=== PATIENT | female | born 1980 | race Caucasian/White ===

== ENCOUNTER → 2024-10-09 13:01 | Outpatient (CLI) | payer BC, SELFPAY ==
[2024-10-09 20:03] LABS: Add Manual Diff / Slide Review NO; Basophils Absolute Auto 0 /uL (0-100); Basophils Percent Auto 0.6 % (0-2); Eosinophils Absolute Auto 0 /uL (0-450); Eosinophils Percent Auto 0.7 % (2-4); Hematocrit 41.6 % (36-46); Hemoglobin 14.4 g/dL (12.0-16.0); Lymphocytes Absolute Auto 1400 /uL (1100-4500); Lymphocytes Percent Auto 33.5 % (25-40); Mean Corpuscular HGB Conc 34.6 % (30-36); Mean Corpuscular Hemoglobin 32.7 PG (26-34); Mean Corpuscular Volume 94.5 fL (80-100); Monocytes Absolute Auto 600 /uL (0-900); Monocytes Percent Auto 13.2 % (3-14); Neutrophils Absolute Auto 2200 /uL (1500-7000); Platelet Count 328 X10^3/uL (150-400); Red Cell Distribution Width 12.7 % (11.6-14.8); White Blood Cell Count 4.3 X10^3/uL (4.5-11.0)
[2024-10-09 20:19] LABS: Alanine Aminotransferase 57 IU/L (<35); Albumin 4.2 g/dL (3.5-5.0); Albumin Globulin Ratio 1.5 (1.0-2.8); Alkaline Phosphatase 95 U/L (38-126); Aspartate Aminotransferase 58 IU/L (14-36); BUN Creatinine Ratio 10.6 (6-22); Bilirubin Total 0.9 mg/dL (0.2-1.3); Blood Urea Nitrogen 11 mg/dL (7-17); C-Reactive Protein Quant 1.8 mg/dL (<1.0); Calcium 9.3 mg/dL (8.4-10.2); Carbon Dioxide 24 mmol/L (22-32); Chloride 103 mmol/L (98-107); Estimated Glomerular Filt Rate > 60 mL/min (>60); Globulin 2.8 g/dL (1.7-4.1); Glucose 129 mg/dL (70-100); HEMOLYSIS < 15 (0-50); Potassium 4.3 mmol/L (3.4-5.1); Sodium 134 mmol/L (137-145)
[2024-10-09 20:25] LABS: Hemoglobin A1C% w Est Avg Glu 5.2 % (4.0-6.0)
[2024-10-09 21:00] LABS: Erythrocyte Sedimentation Rate 27 MM/HR (0-20)
== END ==
PROVIDERS: PCP Family Medicine; Visit Provider Family Medicine
DX: M25.552 Pain in left hip (principal); M54.50 Low back pain, unspecified; R10.2 Pelvic and perineal pain
CPT/HCPCS: 80053; 83036; 85025; 85651; 86140

== ENCOUNTER → 2024-11-13 13:51 | Outpatient (CLI) | payer BC, SELFPAY ==
--- NOTE | 2024-11-13 13:53 | DI.US.S_ITS ---
PROCEDURE: US ABDOMEN COMPLETE INDICATIONS: abd and pelvic tenderness on exam TECHNIQUE: Real-time scanning was performed of the abdominal and retroperitoneal organs, with image documentation. COMPARISON: None. FINDINGS: Liver: Liver is normal in size and homogeneous in echotexture, diffusely hyperechoic consistent with fatty infiltration. Gallbladder: Normal. Biliary ducts: Intrahepatic bile ducts are non-dilated. Extrahepatic bile duct caliber measures 2.1 mm. Normal is 6-7 mm or less in diameter, or 10 mm or less post-cholecystectomy. Pancreas: Visualized portions of the pancreas are sonographically normal. Spleen: Spleen is normal in size and homogeneous in echotexture. Kidneys: Kidneys are normal in size and echotexture. Right kidney measures 9.7 cm long; left kidney measures 9.4 cm long. No hydronephrosis or nephrolithiasis. No solid masses. The left kidney contains a simple cortical cyst measuring up to 1.2 cm laterally. Aorta: Visualized aorta is normal in caliber at less than 3 cm. Iliacs: Proximal common iliac arteries are normal in caliber at less than 2.5 cm. IVC: Intrahepatic inferior vena cava is patent. Miscellaneous: No free abdominal fluid. IMPRESSION: Source of diffuse abdominal pain is not identified. Depending on the clinical status follow-up by contrast-enhanced CT scanning may become necessary. Dictated by: Sherif Mills M.D. on 11/14/2024 at 7:36 Approved by: Sherif Mills M.D. on 11/14/2024 at 7:38
--- NOTE | 2024-11-13 13:53 | DI.US.S_ITS ---
PROCEDURE: US PELVIC LIMITED INDICATIONS: abd and pelvic tenderness on exam TECHNIQUE: Real-time transabdominal scanning was performed of the pelvic organs, with image documentation. COMPARISON: None. FINDINGS: Uterus: Uterus is anteverted and normal in size at 6.6 x 3.3 x 3.7 cm. The myometrium is homogeneous. There is a 1.3 cm anterior myometrial mass in the fundus. The endometrium measures four mm combined thickness. Suggestion of T-shaped IUD present in the fundal endometrium. Ovaries: The detail is suboptimal with transabdominal imaging only. The right ovary measures 1.6 x 1.0 x 1.4 cm, with a calculated ovarian volume of 1.1 cc. The left ovary measures 2.2 x 1.7 x 2.4 cm, with a calculated ovarian volume of 4.7 cc. The ovaries have a normal sonographic appearance. No adnexal masses are seen. Other: No pathologic free abdominal or pelvic fluid. IMPRESSION: Limited exam due to transabdominal imaging only. IUD in place. Probable small uterine fibroid. We strive to produce accurate, complete, and clear reports of imaging services. To assist us in improving patient care, this report was composed using standard report templates and voice recognition software. Therefore, it may contain abnormal punctuation, insertions and/or omissions. Occasional wrong-word or sound-alike substitutions may occur. Though we review the report and make efforts to correct it, we do recommend that the report be read carefully in proper context to recognize any text inaccuracies. Dictated by: Ninoska So M.D. on 11/13/2024 at 22:05 Approved by: Ninoska So M.D. on 11/13/2024 at 22:07
== END ==
PROVIDERS: PCP Family Medicine; Referring Provider Family Medicine; Visit Provider Family Medicine
DX: N28.1 Cyst of kidney, acquired (principal); R10.2 Pelvic and perineal pain; R10.9 Unspecified abdominal pain; Z97.5 Presence of (intrauterine) contraceptive device
CPT/HCPCS: 76700; 76857

== ENCOUNTER 2025-04-09 21:12 | Emergency (ER) | payer BC, SELFPAY ==
[2025-04-09 22:29] VITALS: BP 144/75; PULSE 99; RESP 19; TEMP 36.6; O2SAT 97; BMI 34.9
[2025-04-09 23:44] LABS: Add Manual Diff / Slide Review NO; Basophils Absolute Auto 100 /uL (0-100); Basophils Percent Auto 0.8 % (0-2); Eosinophils Absolute Auto 100 /uL (0-450); Eosinophils Percent Auto 1.9 % (2-4); Hematocrit 41.3 % (36-46); Hemoglobin 14.3 g/dL (12.0-16.0); Lymphocytes Absolute Auto 2900 /uL (1100-4500); Lymphocytes Percent Auto 40.7 % (25-40); Mean Corpuscular HGB Conc 34.6 % (30-36); Mean Corpuscular Hemoglobin 33.6 PG (26-34); Mean Corpuscular Volume 97.3 fL (80-100); Monocytes Absolute Auto 500 /uL (0-900); Monocytes Percent Auto 7.7 % (3-14); Neutrophils Absolute Auto 3500 /uL (1500-7000); Neutrophils Percent Auto 48.9 % (50-75); Platelet Count 274 X10^3/uL (150-400); Red Blood Cell Count 4.25 X10^6/uL (4.0-5.2); Red Cell Distribution Width 12.4 % (11.6-14.8); White Blood Cell Count 7.1 X10^3/uL (4.5-11.0)
[2025-04-09 23:52] LABS: Bacteria Urine Occasional (0-1); RBC Urine 0-1/HPF (0-5/HPF); Squamous Epithelial Cell Urine 0-1 /HPF (0-5/HPF); Urine Volume 10mL (spun); WBC Urine 0-1/HPF (0-5/HPF)
[2025-04-09 23:55] LABS: Albumin 4.7 g/dL (3.5-5.0); Albumin Globulin Ratio 1.4 (1.0-2.8); Alkaline Phosphatase 96 U/L (38-126); Aspartate Aminotransferase 101 IU/L (14-36); BUN Creatinine Ratio 18.5 (6-22); Bilirubin Total 1.1 mg/dL (0.2-1.3); Blood Urea Nitrogen 15 mg/dL (7-17); Calcium 9.2 mg/dL (8.4-10.2); Carbon Dioxide 22 mmol/L (22-32); Chloride 104 mmol/L (98-107); Estimated Glomerular Filt Rate > 60 mL/min (>60); Globulin 3.3 g/dL (1.7-4.1); Glucose 105 mg/dL (70-99); HEMOLYSIS < 15 (0-50); Lipase 154 U/L (23-300); Potassium 4.3 mmol/L (3.4-5.1); Sodium 139 mmol/L (137-145)
[2025-04-09 23:56] LABS: Alanine Aminotransferase 116 IU/L (<35)
--- NOTE | 2025-04-10 00:57 | DI.CT.S_ITS ---
PROCEDURE: CT ABDOMEN PELVIS W CON INDICATIONS: left side abd pain, rectal bleeding TECHNIQUE: After the administration of intravenous contrast, axial sections acquired from the lung bases to the pubic symphysis. Coronal and sagittal reformats were performed. For radiation dose reduction, the following was used: automated exposure control, adjustment of mA and/or kV according to patient size. COMPARISON: None. FINDINGS: Image quality: Diagnostic Lower chest: Unremarkable lung bases Normal heart size. Moderate hiatal hernia. Liver: Steatosis. Gallbladder and biliary system: Unremarkable, nondilated Pancreas: No ductal dilation. A duodenal diverticulum is seen adjacent to the ampulla Spleen: Nonenlarged Adrenals: No discrete nodules Kidneys: No solid renal mass. A cyst is seen in the left mid region. No hydronephrosis. Vessels and lymph nodes: The main portal vein is patent. No abdominal aortic aneurysm. No enlarged lymph nodes by size criteria. Bowel and peritoneum: No small bowel obstruction. Nondilated appendix. Colonic diverticula are seen. No acute focal diverticular inflammation by CT. No drainable abscess or ascites. Body wall: Unremarkable Pelvis: Bladder is under distended. IUD in place. No significant reproductive organ abnormality on limited CT evaluation Bones: No aggressive appearing osseous findings. IMPRESSION: Colonic diverticula, without acute diverticular inflammation identified on CT. No drainable abscess or ascites. Consider colonoscopy correlation given the provided clinical history. No discrete rectal mass is seen on CT. Hepatic steatosis. Moderate hiatal hernia. Other findings above. Dictated by: Kris Ospina M.D. on 04/10/2025 at 1:46 Approved by: Kris Ospina M.D. on 04/10/2025 at 1:50
[2025-04-10 03:53] VITALS: BP 120/71; PULSE 93; O2SAT 97
--- NOTE | 2025-04-10 03:53 | ED_ITS ---
HPI - Abdominal Pain General Chief Complaint: Abdominal Pain Stated Complaint: rectal bleeding x 2 days abd pain Time Seen by Provider: 04/10/25 03:53 Source: patient, RN notes reviewed and old records reviewed Mode of arrival: Ambulatory Limitations: no limitations History of Present Illness HPI narrative: 44-year-old female with history of GERD/Boss's esophagus complaint of rectal pain and hemorrhoid noticed some bright red rectal bleeding as well as some left-sided abdominal pain that is started shortly thereafter. Patient notes she was had hemorrhoids in the past has had a thrombosed hemorrhoid once in the 2022 which was incised. Patient has had several colonoscopies has had diverticulosis and noted to have hemorrhoids on her last 1 in 2020. Patient notes no fevers. Initially just had rectal pain with some bleeding thought it was probably hemorrhoid notes the pain has a little bit right on the inside outside opening. Within the last day or so developed a little bit of left lower quadrant pain which was new atypical so patient came for evaluation. Denies fevers. No nausea or vomiting. Stools has been fairly soft they do take magnesium regularly to help was having soft bowel movements. No black stools but has had some blood. Patient's notes some blood just on underwear as well even when not having a bowel movement. No vaginal bleeding appreciated no discharge. No dysuria urgency or frequency. Patient states they do take omeprazole daily. Has a knee surgery and colonoscopies as her only surgical history. Allergy to penicillin. No regular tobacco, alcohol couple times weekly, no recreational IV drugs. They live on [facility] and a recommend to come for evaluation based on symptoms. Related Data Home Medications ?Medication ?Instructions ?Recorded ?Confirmed epinephrine 0.1 mg/0.1 mL IM PRN 09/11/24 10/16/24 injection, auto-injector Previous Rx's ?Medication ?Instructions ?Recorded cyclobenzaprine 10 mg tablet 10 mg PO TID PRN muscle s pasm #20 09/11/24 tabs gabapentin 100 mg capsule 100 mg PO TID PRN back pain #60 10/07/24 caps omeprazole 20 mg capsule,delayed 20 mg PO BID stomach/ heart burn/ 10/07/24 release protection from NSAIDS #60 c aps hydrocortisone 1 %-pramoxine 1 % 1 applic SD TID-QID P RN 04/10/25 rectal foam (Proctofoam HC) hemorrhoids #10 grams Allergies Allergy/AdvReac Type Severity Reaction Status Date / Time bee venom protein (honey bee) Allergy Severe Swelling Verified 04/09/25 22:31 Penicillins Allergy Unknown Verified 04/09/25 22:31 Review of Systems Review of Systems ROS Unobtainable: All systems reviewed & are unremarkable except as noted in HPI and below Patient History Medical History Benign familial tremor (~1991) Fractures Chicken pox (~1985) Presence of Mirena IUD Bee sting-induced anaphylaxis Allergies (~1989) Boss esophagus (~2020) GERD (gastroesophageal reflux disease) Surgical History Anesthesia History of arthroscopic knee surgery (~1993) Family History Sister Colon cancer Social History Smoking Status: Never smoker additional social history: PMHX: [place]retts -- was on protonix -- lost insurance -- eats a lot of tums now a lot of heart burn ALLERGIES: pollen- takes OTC 2nd GEN AH, flonase bee stings -- epipen no eczema, no asthma, FHX: [place] -- foster care OI: since 2020 lives with Rosita -- her partner tob: no etoh: couple times week 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 HEENT: Head normocephalic, atraumatic, EOMI, pupils reactive, face symmetric, moist mucous membranes NECK: Supple, full range of motion CARDIOVASCULAR: Regular rate and rhythm without murmurs, rubs or gallops. RESPIRATORY: Breath sounds equal bilaterally, no wheezes rales or rhonchi. ABDOMEN: Soft, nontender. Normoactive bowel sounds all 4 quadrants. No guarding or rebound, rigidity, no mass. Digital rectal exam patient has small amount of bright red blood around the rectal opening, there is an external hemorrhoid at the 9 o'clock position that has soft, tender no active bleeding. Appeals Specialist NAN February : No CVA tenderness EXTREMITIES: Normal range of motion, no clubbing or edema. Neurovascularly intact NEUROLOGICAL: Cranial nerves II through XII grossly intact. Moving all extremities SKIN: Warm, dry, no petechiae, no rashes or lesions. Initial Vital Signs Initial Vital Signs: Vital Signs Temperature 97.9 F 04/09/25 22:29 Pulse Rate 99 H 04/09/25 22:29 Respiratory Rate 19 04/09/25 22:29 Blood Pressure 144/75 H 04/09/25 22:29 Pulse Oximetry 97 04/09/25 22:29 Oxygen Delivery Method Room Air 04/09/25 22:29 Course Orders Ordered: ED Orders 04/09/25 23:34 Complete Blood Count AUTO DIFF Stat Comprehensive Metabolic Panel Stat Lipase Stat Urine Culture Stat Urine Microscopic Stat 04/10/25 00:57 CT abdomen pelvis w con Stat Vital Signs Vital signs: Vital Signs - 8 hr 04/10/25 03:53 04/10/25 03:53 04/10/25 04:00 Pulse Rate 93 H 86 Respiratory Rate Blood Pressure 120/71 Pulse Oximetry 97 98 04/10/25 04:00 Pulse Rate Respiratory Rate 18 Blood Pressure 127/89 Pulse Oximetry MDM - Abdominal Pain Lab Data 04/09/25 23:34 04/09/25 23:34 Labs: Lab Results 04/09/25 Range/Units 23:34 WBC 7.1 (4.5-11.0) X10^3/uL RBC 4.25 (4.0-5.2) X10^6/uL Hgb 14.3 (12.0-16.0) g/dL Hct 41.3 (36-46) % MCV 97.3 (80-100) fL MCH 33.6 (26-34) PG MCHC 34.6 (30-36) % RDW 12.4 (11.6-14.8) % Plt Count 274 (150-400) X10^3/uL Neut % (Auto) 48.9 L (50-75) % Lymph % (Auto) 40.7 H (25-40) % [place] % (Auto) 7.7 (3-14) % Eos % (Auto) 1.9 L (2-4) % Baso % (Auto) 0.8 (0-2) % Neut # (Auto) 3500 (3715-2954) /uL Lymph # (Auto) 2900 (3866-7925) /uL [place] # (Auto) 500 (0-900) /uL Eos # (Auto) 100 (0-450) /uL Baso # (Auto) 100 (0-100) /uL Sodium 139 (137-145) mmol/L Potassium 4.3 (3.4-5.1) mmol/L Chloride 104 (98-107) mmol/L Carbon Dioxide 22 (22-32) mmol/L BUN 15 (7-17) mg/dL Creatinine 0.81 (0.52-1.04) mg/dL Estimated GFR > 60 (>60) mL/min BUN/Creatinine Ratio 18.5 (6-22) Glucose 105 H (70-99) mg/dL Calcium 9.2 (8.4-10.2) mg/dL Total Bilirubin 1.1 (0.2-1.3) mg/dL AST 101 H (14-36) IU/L ALT 116 H (<35) IU/L Alkaline Phosphatase 96 (38-126) U/L Total Protein 8.0 (6.3-8.2) g/dL Albumin 4.7 (3.5-5.0) g/dL Globulin 3.3 (1.7-4.1) g/dL Albumin/Globulin Ratio 1.4 (1.0-2.8) Lipase 154 (23-300) U/L Urine RBC 0-1/hpf (0-5/HPF) Urine WBC 0-1/hpf (0-5/HPF) Ur Squamous Epith Cells 0-1 /hpf (0-5/HPF) Urine Bacteria Occasional (0-1) (None) Vol Urine Centrifuged 10ml (spun) Point of care testing: Point of Care Testing Test Results Negative Urine Dip Bedside Urine Glucose Negative Bedside Urine Bilirubin - Negative Bedside Urine Ketone - Negative Urine Specific [place] 1.010 Bedside Urine Occult Blood +++ Bedside Urine pH 6.0 Bedside Urine Protein - Negative Bedside Urine Urobilinogen - Negative Bedside Urine Nitrite - Negative Bedside Urine Leukocytes - Negative Esterase MDM Narrative Medical decision making narrative: Labs show normal white count hemoglobin of 14.3 was 13.9 at 2:22 p.m. earlier on 04/09/2025. Patient's platelets are 274. Chemistries are normal BUN creatinine normal glucose is 105 AST is 101 ALT is 116 patient has been mildly elevated in the past with normal bilirubin and lipase of 154. Point of care urine shows blood, 1 red cell 1 white cell 1 squamous occasional bacteria. is negative. CT abdomen pelvis shows a colonic diverticula without acute diverticular inflammation and phenytoin and CT no drainable abscess or ascites. Consider colonoscopy correlation giving provided clinical history. No discrete rectal mass seen on CT. Hepatic steatosis. Moderate hiatal hernia. Patient has IUD in place. Exam patient is having bright red rectal bleeding but also noticed some left lower quadrant tenderness so CT imaging was obtained which shows diverticulosis but no diverticulitis. Patient was found to have an external hemorrhoid which is likely source of her bleeding. She was had colonoscopies most recently in 2020 that is seen diverticulosis but no polyps. Discussed with the patient follow up if persistent bleeding, return precautions. She does have some medications but we will also give prescription for Proctofoam to see if this is helpful. Discharge Plan Departure Patient Disposition: Home Clinical Impression: Hemorrhoids Instructions: DI for Hemorrhoids Activity Restrictions/Additional Instructions: Follow up for recheck, your CT showed some diverticulosis but no signs of infection. I suspect your bleeding is from your hemorrhoids. You can use Proctofoam topically or the other medications you have at home to see if these are helpful. Continue to take [id number] medications to help stools be soft regular. If you are having persistent symptoms or they are not improving you can follow up with General surgery for evaluation for potential surgical treatment of hemorrhoids. Contacts included below. Prescription for Proctofoam was sent to [facility] use as directed. Please return if you develop fevers, worsening abdominal back or flank pain, increasingly large amounts of bleeding, large clots, lightheadedness or passing out, persistent vomiting, black stools or other new or concerning changes. Prescriptions: New Proctofoam HC 1-1 % foam 1 applic SD TID-QID PRN (Reason: hemorrhoids) Qty: 10 0RF No Action epinephrine 0.1 mg/0.1 mL auto-injector IM PRN cyclobenzaprine 10 mg tablet 10 mg PO TID PRN (Reason: muscle spasm) Qty: 20 0RF gabapentin 100 mg capsule 100 mg PO TID PRN (Reason: back pain) Qty: 60 3RF Rx Instructions: ok to try 2 tablets 3 times/day if needed. let me know your dose so I can reorder. omeprazole 20 mg capsule,delayed release(DR/EC) 20 mg PO BID Qty: 60 0RF Rx Instructions: start with 2x/day for 1 month and then decrease to once/day. Referrals: Chiquita Li MD [Primary Care Provider, Family Practice] Leonid Morelos MD [Physician, General Surgery] Stand Alone Forms: Patient Portal/API
[2025-04-10 04:00] VITALS: BP 127/89; PULSE 86; RESP 18; O2SAT 98
== END 2025-04-10 04:34 | disposition home or self-care (01) ==
PROVIDERS: Emergency Provider Emergency Medicine; PCP Family Medicine
DX: K64.9 Unspecified hemorrhoids (principal); R10.9 Unspecified abdominal pain
CPT/HCPCS: 36415; 74177; 80053; 81003; 81015; 81025; 83690; 85025; 87086; 99283; Q9967